=== PATIENT | female | born 1995 | race Caucasian/White ===

== ENCOUNTER 2019-01-30 15:07 | Emergency (ER) | payer OTHER, BC ==
[~2019-01-30] VITALS: Ht 165.1 cm; Wt 100.0 kg
--- NOTE | 2019-01-30 15:15 | NUR ---
IN ROOM WITH ULTRASOUND AT THIS TIME.
[2019-01-30] MEDS ORDERED: ONDA4TAB11 (15:22)
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
--- NOTE | 2019-01-30 15:35 | NUR ---
IN TALKING TO PT AT THIS TIME
[2019-01-30 15:46] LABS: BILIRUBIN,URINE NEGATIVE (NEGATIVE); CLARITY,URINE CLEAR; COLOR,URINE YELLOW; GLUCOSE, URINE (UA) NEGATIVE (NEGATIVE); KETONES,URINE 1+ (NEGATIVE); LEUKOCYTE ESTERASE ,URINE 1+ (NEGATIVE); NITRITE,URINE NEGATIVE (NEGATIVE); PH,URINE 6 (5-9); PROTEIN,URINE 2+ (NEGATIVE)
[2019-01-30 16:00] LABS: BACTERIA,URINE FEW /HPF; RBC,URINE RARE /HPF
[2019-01-30 16:58] VITALS: BP 111/71
== END 2019-01-30 16:58 | disposition home or self-care (01) ==
LOC: EDUNIT# 15:07 → ER 15:08
DX: O26.892 Other specified pregnancy related conditions, second trimester (principal); Z3A.20 20 weeks gestation of pregnancy; Z90.89 Acquired absence of other organs; V49.40XA Driver injured in collision with unspecified motor vehicles in traffic accident, initial encounter
CPT/HCPCS: 81000; 86900; 86901; 96372

== ENCOUNTER → 2019-02-02 | Outpatient (CLI) | payer BC ==
[~2019-02-02] MED LIST: ONDA4TAB11
--- NOTE | 2019-02-02 13:12 | Diagnostic Imaging Report ---
INDICATION: anatomy survey. TECHNIQUE: Multiple real-time grayscale images were obtained over the gravid uterus. COMPARISON: None. FINDINGS: Single live intrauterine in the cephalic presentation. Placenta is anterior in position and there is no previa. The amount of amniotic fluid appears visually appropriate. heart rate is 136 BPM. Maternal adnexa are suboptimally evaluated due to advanced gestational age. Cervical length is 5.5 cm. anatomy survey is performed and the following structures are visualized and normal: Right ventricular outflow tract, left ventricular outflow tract, profile, lips/nose, stomach, urinary bladder, spine, umbilical cord insertion, cerebral ventricles, cerebellum, cisterna magna, four-chamber heart, kidneys, and all four extremities. Biometrical measurements are as follows: Biparietal 4.7 cm, age 20 weeks 2 days. Head circumference 17.5 cm, age 20 weeks 1 days. Abdominal circumference 14.5 cm, age 19 weeks 6 days. Femur length 3.3 cm, age 20 weeks 3 days. Sonographic estimate age: 20 weeks 2 days. Sonographic estimated date of delivery: 06/20/19. Estimated Weight: 331 gm (+/- 48 gm). LMP percentile: 21%. heart rate: 136 beats per minute. number: 1 of 1. IMPRESSION: 1. Single live intrauterine with normal anatomy survey. Dictated by: Dictated on workstation # [id number]
== END ==
LOC: EDUNIT# 10:00 → RAD 10:11
PROVIDERS: ATTEND Obstetrics & Gynecology
DX: Z36.89 Encounter for other specified antenatal screening (principal); Z3A.20 20 weeks gestation of pregnancy
CPT/HCPCS: 76805

== ENCOUNTER 2019-06-06 16:04 | Outpatient (CLI) | payer BC ==
[~2019-06-06] VITALS: Ht 165.1 cm; Wt 107.9 kg
--- NOTE | 2019-06-06 15:35 | NUR ---
DOROTEO ALVARADO presented to unit via ambulation from ED, accompanied by , with c/o cramping x1 hour, decreased FM today. Pt. weighed, gowned, voided, and to bed. EFHM and TOCO applied, VS taken. Pt. oriented to bed controls, call light, TV, heat, and A/C controls.
[2019-06-06 15:40] VITALS: BP 106/55
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
[2019-06-06 16:26] LABS: BILIRUBIN,URINE NEGATIVE (NEGATIVE); CLARITY,URINE SL CLOUDY; COLOR,URINE YELLOW; GLUCOSE, URINE (UA) NEGATIVE (NEGATIVE); KETONES,URINE NEGATIVE (NEGATIVE); LEUKOCYTE ESTERASE ,URINE 1+ (NEGATIVE); NITRITE,URINE NEGATIVE (NEGATIVE); PH,URINE 6.5 (5-9); PROTEIN,URINE TRACE (NEGATIVE)
--- NOTE | 2019-06-06 16:26 | NUR ---
SVE loose 1cm external, thick, posterior. closed internal. unable to determine presenting part.
[2019-06-06 16:35] LABS: BACTERIA,URINE MODERATE /HPF; SQUAMOUS EPITHELIAL CELL,UR 25-50 /HPF
--- NOTE | 2019-06-06 16:40 | NUR ---
was called. update reviewed with Dr. rosemary CREWS, monitor tracing and UA results. dismissal orders received.
--- NOTE | 2019-06-06 16:47 | NUR ---
myla balbuena reviewed POC- states understanding.
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
== END 2019-06-06 16:57 | disposition home or self-care (01) ==
LOC: WSo 16:04 → LDRP 16:04 → WSo 16:57
PROVIDERS: ATTEND Obstetrics & Gynecology
DX: O36.8190 Decreased fetal movements, unspecified trimester, not applicable or unspecified (principal)
CPT/HCPCS: 81000; 87088; 99213

== ENCOUNTER 2019-06-21 14:00 | Inpatient (IN) | payer BC ==
[~2019-06-21] VITALS: Ht 165 cm; Wt 108.0 kg
[2019-06-21] VITALS (10 sets, daily range): BP systolic 89–115; BP diastolic 48–65
--- NOTE | 2019-06-21 19:00 | NUR ---
DOROTEO ALVARADO presented to unit via from ED, accompanied by , with c/o INDUCTION 40 06/11. DOROTEO ALVARADO weighed, gowned, voided, and to bed. EFHM and TOCO applied, VS taken. DOROTEO ALVARADO oriented to bed controls, call light, TV, heat, and A/C controls.
[2019-06-21] MEDS ORDERED: FERR-84 PO (19:38)
[2019-06-21] MEDS ORDERED: PREN-148 PO (19:38)
[2019-06-21] MEDS ORDERED: NS IV 500 ML 500 ML ONE (19:49)
[2019-06-21] MEDS ORDERED: NS IV 500 ML 500 ML IV SCH (20:15)
[2019-06-21] MEDS: D5 LR IV SOLUTION 1,000 ML IV SCH (20:17)
[2019-06-21 20:27] LABS: BASOPHILS % (AUTO) 0 % (0-10); EOSINOPHILS # (AUTO) 0.1 10^3/uL (0.0-0.3); EOSINOPHILS % (AUTO) 1 % (0-10); HEMATOCRIT 30 % (35-52); HEMOGLOBIN 9.6 G/DL (11.5-16.0); LYMPHOCYTES # (AUTO) 2.9 X 10^3 (1.0-4.0); LYMPHOCYTES % (AUTO) 28 % (12-44); MEAN CORPUSCULAR HEMOGLOBIN 26 PG (25-34); MEAN CORPUSCULAR HGB CONC 32 G/DL (32-36); MEAN CORPUSCULAR VOLUME 81 FL (80-99); MEAN PLATELET VOLUME 9.9 FL (7.4-10.4); MONOCYTES # (AUTO) 0.6 X 10^3 (0.0-1.0); MONOCYTES % (AUTO) 6 % (0-12); NEUTROPHILS # (AUTO) 6.6 X 10^3 (1.8-7.8); NEUTROPHILS % (AUTO) 65 % (42-75); PLATELET COUNT 267 10^3/uL (130-400); RED CELL DISTRIBUTION WIDTH 15.7 % (10.0-14.5); WHITE BLOOD COUNT 10.2 10^3/uL (4.3-11.0)
[2019-06-21] MEDS ORDERED: MISOPROSTOL 100 MCG (CYTOTEC) TAB ONE (20:28)
[2019-06-21] MEDS ORDERED: MISOPROSTOL 100 MCG (CYTOTEC) TAB PO ONE (20:45)
[2019-06-22] VITALS (56 sets, daily range): BP systolic 80–124; BP diastolic 42–69
[2019-06-22] MEDS ORDERED: MISOPROSTOL 100 MCG (CYTOTEC) TAB PO SCH (00:45)
[2019-06-22] MEDS ORDERED: HYDROmorphone 2 MG/ML VIAL (DILAUDID) ONE (02:12)
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
[2019-06-22] MEDS ORDERED: HYDROmorphone 2 MG/ML VIAL (DILAUDID) IV ONE (02:30)
[2019-06-22] MEDS: D5 LR IV SOLUTION 1,000 ML IV SCH ×2 (03:54→12:08)
[2019-06-22] MEDS ORDERED: OXYTOCIN PRE-MIX DRIP 500 ML IV SCH ×2 (04:32→13:18)
[2019-06-22] MEDS ORDERED: ONDANSETRON 4 MG/2 ML (SDV) Z0FRAN ONE (05:58)
[2019-06-22] MEDS ORDERED: ONDANSETRON 4 MG/2 ML (SDV) Z0FRAN IVP ONE (06:15)
[2019-06-22] MEDS ORDERED: LACTATED RINGERS 1,000 ML IV ONE (07:04)
[2019-06-22] MEDS ORDERED: SUFENTA 0.6MCG/ML BUPIVA 0.125 100 ML ONE (07:21)
--- NOTE | 2019-06-22 07:39 | NUR ---
Ting Kevin CRNA here for epidural placement. Procedure explained, consent reviewed and signed by anesthesia. Questions answered to patient's satisfaction. Time out taken to verify correct patient/procedure. Patient up to side of bed, assisted into sitting position. Betadine prep done x3 and sterile drape applied. Local done, see anesthesia record. Test dose given, see anesthesia record for drug and dosage. Epidural catheter secured in place. Epidural placement complete. Assisted back into bed, monitors adjusted. Epidural dosed, see anesthesia record. Epidural of Sufenta/Bupivicaine @ 12 cc/hr stated per pump. Patient tolerated procedure well.
[2019-06-22] MEDS ORDERED: LACTATED RINGERS 1,000 ML IV SCH (08:01)
[2019-06-22] MEDS ORDERED: METOCLOPRAMIDE INJ 10 MG/2 ML (REGLAN) IV PRN (08:15)
[2019-06-22] MEDS ORDERED: diphenhydrAMINE 50 MG/ML INJ (BENADRYL) IV PRN (08:15)
[2019-06-22] MEDS ORDERED: EPIDURAL (SUFENTA 0.6MCG/ML BUPIVA 0.125%) 100 ML BAG EPI SCH (08:15)
[2019-06-22] MEDS ORDERED: NALOXONE 0.4 MG/ML 1 ML (NARCAN) VIAL IV PRN ×2 (08:15)
[2019-06-22] MEDS ORDERED: ONDANSETRON 4 MG/2 ML (SDV) Z0FRAN IV PRN (08:15)
--- NOTE | 2019-06-22 08:43 | History & Physical-OB ---
OB - Chief Complaint & HPI Date/Time Date of Admission: Date of Admission: Jun 21, 2019 at 18:58 Date seen by a Provider: Jun 22, 2019 Time Seen by a Provider: 08:30 Chief Complaint/History OB-Reason for Admission/Chief: Induction of Labor Hx : 3 Hx Para: 1 Expected Date of Delivery: Jun 18, 2019 Gestational Age in Weeks: 40 Gestational Age in Days: 3 Indication for induction: post dates Admission Nurse Assessment Rev: Yes History of Labs O neg Antibody neg RI RPR NR HBsAg NR HIV NR GC neg GBS neg Allergies and Home Medications Allergies Coded Allergies: No Known Drug Allergies (Unverified , 01/30/19) Patient Home Medication List Home Medication List Reviewed: Yes OB - History Hx of Present Care: Yes Ultrasounds: Normal mid trimester US Obstetrical Complications: None Medical Complications: None Patient Past Medical History n/a Social History/Family History Recent Infectious Disease Expo: No Alcohol Use: Denies Use Recreational Drug Use: No 2nd Hand Smoke Exposure: No OB - Admission Exam Physical Exam Vitals: Vital Signs 06/21/19 06/22/19 06/22/19 21:44 03:20 07:00 Temp 36.0 Pulse 73 Resp 18 B/P (MAP) 104/55 (71) Pulse Ox 98 O2 Delivery Room Air HEENT: NCAT Heart: Rhythm Normal Lungs: Clear Abdomen: Gravid Extremities: Normal Reflexes: Normal Cervical Dilatation: 2cm Effacement: 75% Station: -1 Membranes: Intact Heart Rate: 130's Accelerations: Accelerations Present Decelerations: No Decelerations 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) Contractions on Admission: 6-10 Minutes Apart Intensity: Mild Cruz Scoring Tool (Modified) Dilation (cm): 1-2cm (1) Effacement (%): 51-79% (2) Descent/Station: -1,0 (2) Cervix Consistency: Soft (2) Cervix Position: Anterior (2) Add 1 point for: Each previous vaginal delivery (1) Cruz Score: 10 Labs Laboratory Tests Test 06/21/19 20:00 Range/Units White Blood Count 10.2 4.3-11.0 10^3/uL Red Blood Count 3.76 L 4.35-5.85 10^6/uL Hemoglobin 9.6 L 11.5-16.0 G/DL Hematocrit 30 L 35-52 % Mean Corpuscular Volume 81 80-99 FL Mean Corpuscular Hemoglobin 26 25-34 PG Mean Corpuscular Hemoglobin Concent 32 32-36 G/DL Red Cell Distribution Width 15.7 H 10.0-14.5 % Platelet Count 267 130-400 10^3/uL Mean Platelet Volume 9.9 7.4-10.4 FL Neutrophils (%) (Auto) 65 42-75 % Lymphocytes (%) (Auto) 28 12-44 % Monocytes (%) (Auto) 6 0-12 % Eosinophils (%) (Auto) 1 0-10 % Basophils (%) (Auto) 0 0-10 % Neutrophils # (Auto) 6.6 1.8-7.8 X 10^3 Lymphocytes # (Auto) 2.9 1.0-4.0 X 10^3 Monocytes # (Auto) 0.6 0.0-1.0 X 10^3 Eosinophils # (Auto) 0.1 0.0-0.3 10^3/uL Basophils # (Auto) 0.0 0.0-0.1 10^3/uL OB - Assessment/Plan/Diagnosis Assessment Assessment: induction of labor Admission Dx 23 yo @ 40 weeks Induction of labor GBS neg Admission Status: Inpatient Order (span 2 midnights) Reason for Inpatient Admission: Induction of labor at 40 weeks Plan Plan: Induction Induction Method: per Misoprostol Protocol KAE STAPLETON DO Jun 22, 2019 08:43
--- NOTE | 2019-06-22 13:23 | OB Labor & Delivery Record ---
L&D History Date of Service Date of Service: Jun 22, 2019 History Expected Date of Delivery: Jun 18, 2019 Gestational Age in Weeks: 40 Hx : 3 Hx Para: 1 Complications Events: Routine care Operative Indications (Cesarea: N/A-Vaginal Delivery Intrapartal Events: None L&D Stage1 Stage One Onset of Labor - Date: Jun 22, 2019 Monitors and Tracing Monitor Mode: Internal Heart Rate: 115 Monitor Accelerations: Uniform Monitor Decelerations: Variable Station: -2 Correction Variability: Average (6-10) Short Term Variability: Present Presentation: Vertex Vital Signs VS - Last 72 Hours, by Label 06/21/19 06/21/19 06/21/19 06/21/19 19:30 20:20 20:50 21:20 Temp 36.5 Pulse 99 75 90 91 Resp 18 18 18 18 B/P (MAP) 110/56 (74) 101/58 (72) 105/54 (71) 102/65 (77) Pulse Ox 97 97 O2 Delivery Room Air Room Air Room Air Room Air 06/21/19 06/21/19 06/21/19 06/21/19 21:44 21:50 22:20 22:50 Temp 36.6 Pulse 75 86 79 78 Resp 18 18 18 18 B/P (MAP) 115/61 (79) 89/48 (62) 92/48 (63) Pulse Ox 98 O2 Delivery Room Air Room Air Room Air Room Air 06/21/19 06/21/19 06/22/19 06/22/19 23:20 23:50 00:20 00:50 Temp 36.5 Pulse 82 95 82 85 Resp 18 18 18 18 B/P (MAP) 104/59 (74) 102/59 (73) 104/59 (74) 115/64 (81) O2 Delivery Room Air Room Air Room Air Room Air 06/22/19 06/22/19 06/22/19 06/22/19 01:20 01:50 02:20 02:50 Pulse 100 71 83 67 Resp 18 18 18 18 B/P (MAP) 114/69 (84) 103/55 (71) 86/54 (65) 81/42 (55) O2 Delivery Room Air Room Air Room Air Room Air 06/22/19 06/22/19 06/22/19 06/22/19 03:20 03:50 04:20 04:50 Temp 36.0 Pulse 68 73 64 63 Resp 18 18 18 18 B/P (MAP) 80/43 (55) 106/54 (71) 102/53 (69) 96/54 (68) O2 Delivery Room Air Room Air Room Air Room Air 06/22/19 06/22/19 06/22/19 06/22/19 05:20 05:30 05:45 06:00 Pulse 74 84 74 80 Resp 18 18 18 18 B/P (MAP) 107/58 (74) 110/60 (77) 106/56 (73) 109/64 (79) O2 Delivery Room Air Room Air Room Air Room Air 06/22/19 06/22/19 06/22/19 06/22/19 06:15 06:30 06:45 07:00 Pulse 80 76 67 73 Resp 18 18 18 18 B/P (MAP) 100/57 (71) 97/54 (68) 105/51 (69) 104/55 (71) O2 Delivery Room Air Room Air Room Air Room Air 06/22/19 06/22/19 06/22/19 06/22/19 07:15 07:30 07:39 07:45 Temp 36.4 Pulse 78 114 95 Resp 18 18 18 B/P (MAP) 111/60 (77) 114/56 (75) 104/50 (68) Pulse Ox 100 99 O2 Delivery Room Air Room Air Room Air 06/22/19 06/22/19 06/22/19 06/22/19 07:48 07:49 07:53 07:56 Pulse 91 83 81 81 Resp 18 18 18 18 B/P (MAP) 117/56 (76) 104/56 (72) 106/61 (76) 122/59 (80) Pulse Ox 100 100 100 100 O2 Delivery Room Air Room Air Room Air Room Air 06/22/19 06/22/19 06/22/19 06/22/19 08:00 08:15 08:30 08:45 Temp 36.1 Pulse 96 105 89 95 Resp 18 18 18 18 B/P (MAP) 111/56 (74) 110/58 (75) 105/53 (70) 104/54 (71) Pulse Ox 99 100 98 99 O2 Delivery Room Air Room Air Room Air Room Air 06/22/19 06/22/19 06/22/19 06/22/19 09:00 09:15 09:30 09:45 Temp 36.3 Pulse 78 82 75 68 Resp 18 18 18 18 B/P (MAP) 99/54 (69) 96/54 (68) 97/58 (71) 102/57 (72) Pulse Ox 94 96 96 100 O2 Delivery Room Air Room Air Room Air Room Air 06/22/19 06/22/19 06/22/19 06/22/19 10:00 10:15 10:30 10:45 Temp 36.1 Pulse 57 68 63 69 Resp 18 18 18 18 B/P (MAP) 96/52 (67) 101/57 (72) 109/53 (71) 93/51 (65) Pulse Ox 99 99 100 99 O2 Delivery Room Air Room Air Room Air Room Air 06/22/19 11:00 Pulse 69 Resp 18 B/P (MAP) 107/59 (75) Pulse Ox 100 O2 Delivery Room Air Rupture of Membranes Spontaneous Ruture of Membrane: No Amniotic Membrane Rupture Time: 0810 Amniotic Membrane Fluid Desc.: Clear Vaginal Bleeding Description: Normal Show Induction/Anesthesia Epidural Cath Placement - Time: 0748 Progress/Notes Progressed with pitocin augmentation max dose of 10 mu to complete and +2 station L&D Stage2 Stage Two Stage II Date: Jun 22, 2019 Monitors and Tracing Monitor Mode: External Heart Rate: 115 Monitor Accelerations: Uniform Monitor Decelerations: Variable Correction Variability: Average (6-10) Short Term Variability: Present Position: Right Occiput Anterior Presentation: Vertex Cord Descript/Complications Cord Vessel Description: 3 Vessels Complications nuchal cord reduced x 1 Delivery Type Infant Delivery Method: Spontaneous Vaginal Anterior Shoulder: Right Episiotomy/Perineal Laceration Laceraction(s)/Extensions: No Condition of Infant Delivery 1 minute Comment: 8 5 minute Comment: 8 Notes Live female , weight pending Condition of Infant Condition of : Living Exam: No Observed Abnormalities Resuscitation Resuscitation: N/A - Spontaneous Resp L&D Stage3 Stage Three Stage III Date: Jun 22, 2019 Pictocin Pitocin Administration mu/min: 10 Pitocin ml/hr: 10 Pitocin Administration Comment: Pitocin increased per wide open at delivery of placenta Placenta Delivery Placenta Delivery: Spontaneous Delivery Summary Summary Estimated blood loss (mL): 250 Attending at delivery: Kae Stapleton DO Condition of Delivery Examined: Cervix Examined, Uterus Explored Post Hemorrhage: No Condition of Mother stable Condition of Infant (s) stable KAE STAPLETON DO Jun 22, 2019 13:23
[2019-06-22] MEDS ORDERED: WITCH HAZEL(TUCKS) 40 EA JAR TOP PRN (13:30)
[2019-06-22] MEDS ORDERED: TETANUS,DIPTH,PERTUSS P/F (BOOSTRIX) 0.5 ML VIAL IM ONE (13:30)
[2019-06-22] MEDS ORDERED: HYDROcodone/APAP 5 MG/325 MG (LORTAB) TAB PO PRN (13:30)
[2019-06-22] MEDS ORDERED: DIBUCAINE (NUPERCAINAL) 1% OINT 30 GM TOP PRN (13:30)
[2019-06-22] MEDS ORDERED: BENZOCAINE/MENTHOL (DERMOPLAST) 60 ML CAN TP PRN (13:30)
[2019-06-22] MEDS ORDERED: MEASLES,MUMPS,RUBELLA 1 EA INJ SQ ONE (13:30)
[2019-06-22] MEDS ORDERED: CATHETER FLUSH 10 ML SYR IV SCH (14:00)
[2019-06-22] MEDS: IBUPROFEN 600 MG (MOTRIN) TAB PO SCH ×2 (15:25→20:30)
--- NOTE | 2019-06-22 15:25 | NUR ---
Patient transferred via wheelchair to room 310. Patient oriented to room. [place] information packet reviewed. Patient verbalizes understanding and questions answered.
--- NOTE | 2019-06-22 20:15 | NUR ---
Nurse at pt. bedside. Pt requesting a shower. IV assessed and taped for shower at this time. Water refilled. No other concerns or needs at this time.
[2019-06-22] MEDS: DOCUSATE SODIUM 100 MG (COLACE) CAP PO SCH (20:30)
[2019-06-23 00:47] VITALS: BP 81/43
[2019-06-23] MEDS: IBUPROFEN 600 MG (MOTRIN) TAB PO SCH ×2 (03:28→09:10)
[2019-06-23 05:01] VITALS: BP_SYST 81; BP_SYST 89; BP_DIAS 43; BP_DIAS 48
[2019-06-23 06:32] LABS: BASOPHILS % (AUTO) 0 % (0-10); EOSINOPHILS # (AUTO) 0.2 10^3/uL (0.0-0.3); EOSINOPHILS % (AUTO) 1 % (0-10); HEMATOCRIT 30 % (35-52); HEMOGLOBIN 9.4 G/DL (11.5-16.0); LYMPHOCYTES # (AUTO) 2.8 X 10^3 (1.0-4.0); LYMPHOCYTES % (AUTO) 27 % (12-44); MEAN CORPUSCULAR HEMOGLOBIN 25 PG (25-34); MEAN CORPUSCULAR HGB CONC 31 G/DL (32-36); MEAN CORPUSCULAR VOLUME 81 FL (80-99); MEAN PLATELET VOLUME 10.1 FL (7.4-10.4); MONOCYTES # (AUTO) 0.6 X 10^3 (0.0-1.0); MONOCYTES % (AUTO) 6 % (0-12); NEUTROPHILS % (AUTO) 66 % (42-75); PLATELET COUNT 228 10^3/uL (130-400); RED CELL DISTRIBUTION WIDTH 15.8 % (10.0-14.5); WHITE BLOOD COUNT 10.6 10^3/uL (4.3-11.0)
[2019-06-23] MEDS ORDERED: PRENATAL VITAMIN 1 EA TAB PO SCH (07:00)
[2019-06-23] MEDS ORDERED: FERROUS SULF 325 MG (IRON) TAB PO SCH (08:00)
[2019-06-23] MEDS: DOCUSATE SODIUM 100 MG (COLACE) CAP PO SCH (09:10)
[2019-06-23 09:12] VITALS: BP 95/61
--- NOTE | 2019-06-23 09:20 | NUR ---
Dr. Peterson here to see pt. Discharge orders rec'd
[2019-06-23] MEDS ORDERED: BENZ78AE2 TP (09:28)
[2019-06-23] MEDS ORDERED: SERT25TA PO (09:28)
[2019-06-23] MEDS ORDERED: IBUP-844 PO (09:28)
[2019-06-23] MEDS ORDERED: Hydrocodone Bit/Acetaminophen PO (09:28)
--- NOTE | 2019-06-23 09:29 | Discharge Inst-Women's Service ---
Discharge Inst-Women's Serv Depart Medication/Instructions New, Converted or Re-Newed RX: RX on Chart Final Diagnosis PPD 1 NVD Problems Reviewed?: Yes Consults/Follow Up Additional Follow Up: Yes Orders/Referrals Dr. Stapleton in 6 weeks Activity Activity: Activity as Tolerated Driving Instructions: No Driving for 1 Week NO SMOKING: NO SMOKING Nothing Inside Vagina: No Douching, No [place], No Tampons Diet Discharge Diet: No Restrictions Symptoms to Report to : Bleeding Excessive, Pain Increased, Fever Over 101 Degrees F, Vaginal Bleeding Increase, Questions/Concerns For Any Problems or Questions: Contact Your Physician KAE STAPLETON DO Jun 23, 2019 09:29
--- NOTE | 2019-06-23 09:31 | Postpartum Progress Note ---
Note Note Day # 1 Subjective: Patient is without complaints. Ambulating, voiding. Tolerating a regular diet without nausea or vomiting. Normal lochia. Pain is well controlled with oral pain medications. Objective: Physical Exam: General - Alert and oriented, no apparent distress Abdomen - Soft, appropriately tender to palpation, non-distended, fundus firm at umbilicus Extremities - no edema, negative Garth's bilaterally Assessment: PPD1 NVD Plan: Routine care. Encourage breast feeding. Encourage ambulation. Ferrous sulfate supplementation. Plan for discharge today Vitals - Labs Vital Signs - I&O Vital Signs Date Time Temp Pulse Resp B/P (MAP) Pulse Ox O2 Delivery O2 Flow Rate FiO2 06/23/19 09:12 36.6 79 18 95/61 (72) Room Air 06/23/19 05:01 36.2 78 16 89/48 (62) 97 Room Air 06/23/19 00:47 36.1 75 16 81/43 (56) 97 Room Air 06/22/19 20:15 36.3 62 18 100/54 (69) 97 Room Air 06/22/19 15:10 36.7 98 18 112/53 (72) Room Air 06/22/19 14:55 96 18 105/57 (73) Room Air 06/22/19 14:40 81 18 106/59 (75) Room Air 06/22/19 14:25 91 18 103/58 (73) Room Air 06/22/19 14:10 36.3 78 18 108/55 (72) Room Air 06/22/19 13:55 126 18 118/55 (76) Room Air 06/22/19 13:40 36.5 95 18 110/58 (75) Room Air 06/22/19 13:25 36.6 113 18 110/60 (77) Room Air 06/22/19 13:09 103 18 114/61 (78) Room Air 06/22/19 13:00 108 18 117/59 (78) 100 Room Air 06/22/19 12:45 36.7 86 18 120/66 (84) 100 Room Air 06/22/19 12:30 95 18 118/57 (77) 100 Room Air 06/22/19 12:15 88 18 101/63 (76) 100 Room Air 06/22/19 12:00 74 18 94/54 (67) 99 Room Air 06/22/19 11:45 94 18 94/52 (66) 99 Room Air 06/22/19 11:30 77 18 110/55 (73) 99 Room Air 06/22/19 11:15 82 18 124/54 (77) 100 Room Air 06/22/19 11:00 69 18 107/59 (75) 100 Room Air 06/22/19 10:45 36.1 69 18 93/51 (65) 99 Room Air 06/22/19 10:30 63 18 109/53 (71) 100 Room Air 06/22/19 10:15 68 18 101/57 (72) 99 Room Air 06/22/19 10:00 57 18 96/52 (67) 99 Room Air 06/22/19 09:45 68 18 102/57 (72) 100 Room Air I & O 06/23/19 07:00 Intake Total 2000 ml Balance 2000 ml Labs Laboratory Tests 06/23/19 06:10: White Blood Count 10.6, Red Blood Count 3.72L, Hemoglobin 9.4L, Hematocrit 30L, Mean Corpuscular Volume 81, Mean Corpuscular Hemoglobin 25, Mean Corpuscular Hemoglobin Concent 31L, Red Cell Distribution Width 15.8H, Platelet Count 228, Mean Platelet Volume 10.1, Neutrophils (%) (Auto) 66, Lymphocytes (%) (Auto) 27, Monocytes (%) (Auto) 6, Eosinophils (%) (Auto) 1, Basophils (%) (Auto) 0, Neutrophils # (Auto) 7.0, Lymphocytes # (Auto) 2.8, Monocytes # (Auto) 0.6, Eosinophils # (Auto) 0.2, Basophils # (Auto) 0.0 KAE STAPLETON DO Jun 23, 2019 09:31
--- NOTE | 2019-06-23 10:54 | Anesthesia-Regional Post-Op ---
Regional Patient Condition Mental Status: Alert, Oriented x3 Circulation: Same as Pre-Op Headache: Absent Sensation: Full Recovery Motor Block: Absent Post Op Complications Complications None Follow Up Care/Instructions Patient Instructions None needed. Anesthesia/Patient Condition Patient is doing well, no complaints, stable vital signs, no apparent adverse anesthesia problems. No complications reported per nursing. DELORES RAMIREZ CRNA Jun 23, 2019 10:53
--- NOTE | 2019-06-23 15:08 | NUR ---
Discharge instructions explained to pt with copy provided to pt along with prescriptions. Pt notified of follow up appointment. Pt verbalizes understanding of teaching and signs to verify. Denies needs or concerns at this time. 1515 pt ambulates off unit to private vehicle accompanied by S.O., infant, and RN to private vehicle with all personal belongings. No s/s of distress noted.
== END 2019-06-23 15:15 | disposition home or self-care (01) | DRG 807 ==
LOC: LDRP 18:58
PROVIDERS: ADMIT Obstetrics & Gynecology; ATTEND Obstetrics & Gynecology
PROC: 3E0DXGC Introduction of Other Therapeutic Substance into Mouth and Pharynx, External Approach (ICD-10-PCS; 2019-06-21)
PROC: 10E0XZZ Delivery of Products of Conception, External Approach (ICD-10-PCS; principal; 2019-06-22)
DX: O48.0 Post-term pregnancy (principal); O69.81X0 Labor and delivery complicated by cord around neck, without compression, not applicable or unspecified; Z37.0 Single live birth; Z3A.40 40 weeks gestation of pregnancy
CPT/HCPCS: 36415; 83033; 85025; 86850; 86900; 86901